=== PATIENT | male | born 1985 | race Hispanic/Latino ===

== ENCOUNTER 2024-09-03 | Emergency (ER) | payer SELFPAY ==
[~2024-09-03] VITALS: Ht 170.2 cm; Wt 90.9 kg
[2024-09-03] MEDS ORDERED: MORPHINE SULFATE 4 MG/ML VIAL IV ONE (00:15)
[2024-09-03] MEDS ORDERED: SODIUM CHLORIDE 0.9% 1,000 ML IV ONE (00:15)
[2024-09-03 00:28] LABS: BASOPHILS 0.3 % (0.2-1.2); EOSINOPHILS 0.1 % (0.8-7.0); LYMPHOCYTES 12.1 % (21.8-53.1); MCH 31.4 PG (25.7-32.2); MCHC 35.4 g/dL (32.3-36.5); MCV 88.7 fL (79.0-92.2); MONOCYTES 6.5 % (5.3-12.2); NEUTROPHILS 80.7 % (34.0-67.9); RBC 5.41 M/uL (4.63-6.08)
[2024-09-03 00:42] LABS: ALT (SGPT) 265 U/L (14-59); AST (SGOT) 245 U/L (15-37); GLOMERULAR FILTRATION RATE,EST 108 mL/min (>60); PROTEIN, TOTAL 8.3 g/dL (6.4-8.2); UREA NITROGEN 14 mg/dL (7-18)
[2024-09-03] MEDS ORDERED: MEROPENEM 1,000 MG in SODIUM CHLORIDE 0.9% 100 ML IV ONE (01:45)
[2024-09-03 02:02] LABS: BLOOD/HGB, URINE NEGATIVE (Negative); KETONE, URINE SMALL (Negative); LEUK ESTERASE, URINE NEGATIVE (negative); NITRITE, URINE NEGATIVE (negative)
[2024-09-03] MEDS ORDERED: SODIUM CHLORIDE 0.9% 1,000 ML IV SCH (02:45)
[2024-09-03 03:11] VITALS: BP 132/87
== END 2024-09-03 03:12 | disposition short-term general hospital (02) ==
LOC: ED
PROVIDERS: Family Medicine
DX: K85.10 Biliary acute pancreatitis without necrosis or infection (principal)
CPT/HCPCS: 36415; 74177; 80053; 81003; 83690; 85025; 96361; 96375; 99285-25; J2185; J2270; J2405; J7030; Q9967; U0002